=== PATIENT | male | born 1940 | race Caucasian/White ===

== ENCOUNTER 2019-08-01 12:33 | Emergency (ER) | payer BC, SELFPAY ==
[2019-08-01 13:10] VITALS: BP 144/87; PULSE 60; RESP 14; TEMP 36.1; O2SAT 92
--- NOTE | 2019-08-01 13:53 | DI.RAD.S_ITS ---
PROCEDURE: XR CHEST 1V INDICATIONS: chest pain TECHNIQUE: One view of the chest was acquired. COMPARISON: [facility], , CHEST 2 VIEW, 06/19/2016, 20:02. FINDINGS: Surgical changes and devices: None. Lungs and pleura: There are low lung volumes. Interstitial prominence at the right lung base is present. There is no large effusion or pneumothorax. Mediastinum: Mediastinal contours appear normal. Heart size is normal. Bones and chest wall: No suspicious bony lesions. Overlying soft tissues appear unremarkable. IMPRESSION: Mild right basilar interstitial prominence may represent atelectasis, asymmetric edema, or pneumonia. Please correlate clinically. Dictated by: Tk Cadet M.D. on 08/01/2019 at 13:42 Approved by: Tk Cadet M.D. on 08/01/2019 at 13:43
[2019-08-01 14:01] LABS: Add Manual Diff / Slide Review NO; Basophils Absolute Auto 0 /uL (0-100); Basophils Percent Auto 0.5 % (0-2); Eosinophils Absolute Auto 0 /uL (0-450); Eosinophils Percent Auto 0.6 % (2-4); Hematocrit 41.5 % (41-53); Hemoglobin 14.6 g/dL (13.5-17.5); Lymphocytes Absolute Auto 1300 /uL (1100-4500); Lymphocytes Percent Auto 16.1 % (25-40); Mean Corpuscular HGB Conc 35.2 % (30-36); Mean Corpuscular Hemoglobin 33.2 PG (26-34); Mean Corpuscular Volume 94.5 fL (80-100); Monocytes Absolute Auto 500 /uL (0-900); Monocytes Percent Auto 5.9 % (3-14); Neutrophils Absolute Auto 6000 /uL (1500-7000); Neutrophils Percent Auto 76.9 % (50-75); Platelet Count 267 X10^3/uL (150-400); White Blood Cell Count 7.9 X10^3/uL (4.5-11.0)
[2019-08-01 14:04] LABS: Alanine Aminotransferase 28 IU/L (<50); Albumin 4.1 g/dL (3.5-5.0); Albumin Globulin Ratio 1.2 (1.0-2.8); Alkaline Phosphatase 101 U/L (38-126); Aspartate Aminotransferase 32 IU/L (17-59); BUN Creatinine Ratio 23.3 (6-22); Bilirubin Total 0.4 mg/dL (0.2-1.3); Blood Urea Nitrogen 21 mg/dL (9-20); Calcium 9.2 mg/dL (8.4-10.2); Carbon Dioxide 28 mmol/L (22-32); Chloride 105 mmol/L (98-107); Creatine Kinase 84 U/L (55-170); Estimated Glomerular Filt Rate > 60.0 mL/min (>60); Globulin 3.3 g/dL (1.7-4.1); Glucose 118 mg/dL (80-110); HEMOLYSIS < 15 (0-50); Lipase 98 U/L (23-300); Potassium 4.2 mmol/L (3.4-5.1); Sodium 141 mmol/L (137-145); Total Protein 7.4 g/dL (6.3-8.2)
[2019-08-01 14:06] VITALS: BP 161/93; PULSE 72; RESP 16
[2019-08-01 14:09] VITALS: O2SAT 92
--- NOTE | 2019-08-01 14:11 | PC.NURSE ---
pt and spouse reports, this morning at 10am, pt +dizziness, ground level fall onto carpet, denies head injury, denies loc/neck/back pain. pt recovering from pneumonia for 3 weeks, spouse states, he used to have RX meclizine. denies any symptoms at this time, spouse requesting meclizine rx.
[2019-08-01 14:16] LABS: Troponin I < 0.012 ng/mL (0.01-0.034)
[2019-08-01 14:40] LABS: INR 1.1 (0.9-1.3); Prothrombin Time 12.7 SECONDS (10.1-12.7)
[2019-08-01 14:43] LABS: PTT Partial Thromboplastin Tim 28 SECONDS (26.4-36.2)
--- NOTE | 2019-08-01 20:30 | ED.DIZZY ---
HPI - Dizziness <Mary Ellen PondSUZANNEP-BC - Last Filed: 08/01/19 20:35> General Chief Complaint: Dizziness Stated Complaint: vertigo Time Seen by Provider: 08/01/19 14:29 Source: patient and family Mode of arrival: Ambulatory Limitations: no limitations History of Present Illness HPI Narrative: The patient is a 78-year-old male nonsmoker with history of influenza who presents with a chief complaint of an episode of dizziness earlier this morning approximately 10:00 a.m.. states he has a history of vertigo on and off. States that he got up felt the knee and fell over. Denies any his head, any loss of consciousness, any neck or back pain incontinence of bowel incontinence of bladder saddle anesthesia. He states that the spinning sensation self resolved and he feels fine now. On my initial exam the patient is requesting to go home. He denies any nausea vomiting diarrhea abdominal pain chest pain shortness of breath. Denies any weakness, slurred speech, confusion. Patient is declining any CTs at this point time. states that he has been seen for pneumonia recently, has been getting better and they do not want that evaluated today. Related Data Home Medications Medication Instructions Recorded Confirmed Glucosamine Hydrochloride 500 mg PO QDAY #0 04/05/11 (#GLUCOSAMINE) MULTIVITAMIN (#UNI-STRESS) 1 cap PO QDAY #0 04/05/11 [FISH OIL] 1,000 mg PO QDAY #0 04/05/11 [VITAMIN D3] 1,000 iu PO QDAY #0 04/05/11 lovastatin 40 mg PO QDAY #0 04/05/11 tamsulosin [Flomax] 0.4 mg PO QDAY #0 04/05/11 [EQUATE ALLERGY ] PO PRN #0 04/17/11 donepezil [Aricept] 25 mg PO #0 04/08/13 memantine [Namenda] #0 06/19/16 tadalafil [Cialis] #0 06/19/16 Previous Rx's Medication Instructions Recorded oseltamivir [Tamiflu] 75 mg PO BID #9 cap 06/19/16 meclizine [Motion Relief 25 mg PO TID PRN #14 tab 08/01/19 (meclizine)] Allergies Allergy/AdvReac Type Severity Reaction Status Date / Time SULFA (sulfonamide) Allergy Unknown Uncoded 10/16/17 12:18 Review of Systems [facility] Last Filed: 08/01/19 20:35> Review of Systems Narrative: GENERAL: Denies chills, fatigue, malaise, fever, sweats. HEENT: Denies sinus pain, ear pain, sore throat, difficulty swallowing, dizziness. RESPIRATORY: Denies dyspnea, cough, wheezing, hemoptysis, sputum. CARDIOVASCULAR: Denies chest pain, palpitations, orthopnea, edema, GASTROINTESTINAL: Denies nausea, vomiting, abdominal pain, diarrhea, constipation, melena. : Denies dysuria, frequency, incontinence, hematuria, urinary retention. MUSCULOSKELETAL: denies weakness, joint pain, or bony pain SKIN: Denies rash, skin lesions, or other NEUROLOGIC: See HPI PSYCHIATRIC: No concerning psychosocial issues. 12 point review of systems is negative except for those stated above Patient History <[facility] - Last Filed: 08/01/19 20:35> Social History Smoking Status: Never smoker Smoking Status: Never smoker Substance Use Type: does not use Exam <Mary Ellen Pond [facility] - Last Filed: 08/01/19 20:35> Narrative Exam Narrative: GENERAL: This is a well-nourished, well-developed patient, in no acute distress HEAD: Atraumatic. Normocephalic. No temporal or scalp tenderness. EYES: Pupils equal round and reactive. Extraocular motions intact. No scleral icterus. No injection or drainage. ENT: Nose without bleeding, purulent drainage or septal hematoma. Throat without erythema, tonsillar hypertrophy or exudate. Uvula midline. Airway patent. NECK: Trachea midline. No JVD or lymphadenopathy. Supple, nontender, no meningeal signs. CARDIOVASCULAR: Regular rate and rhythm RESPIRATORY: Clear to auscultation. Breath sounds equal bilaterally. No wheezes, rales, or rhonchi. No cough. No increased respiratory effort. No accessory muscle use. GASTROINTESTINAL: Abdomen soft, non-tender, nondistended. No hepato-splenomegaly, or palpable masses. No guarding. EXTREMITIES: No clubbing, cyanosis, or edema. No joint tenderness, effusion, or edema noted. BACK: Nontender without deformity or crepitance. No flank tenderness. NEURO: AOx3. Interactive. Age appropriate. Stable gait. Strength is equal upper lower extremities bilaterally. Clear speech. No gross cranial nerve deficit. SKIN: No rash or erythema on visible skin Initial Vital Signs Initial Vital Signs: Vital Signs Temperature 97 F L 08/01/19 13:10 Pulse Rate 60 08/01/19 13:10 Respiratory Rate 14 08/01/19 13:10 Blood Pressure 144/87 H 08/01/19 13:10 Pulse Oximetry 92 08/01/19 13:10 <DO Valorie Boyle Last Filed: 08/02/19 07:59> Initial Vital Signs Initial Vital Signs: Vital Signs Temperature 97 F L 08/01/19 13:10 Pulse Rate 60 08/01/19 13:10 Respiratory Rate 14 08/01/19 13:10 Blood Pressure 144/87 H 08/01/19 13:10 Pulse Oximetry 92 08/01/19 13:10 Course <GUALBERTO Vines - Last Filed: 08/01/19 20:35> Orders Ordered: Discontinued Medications Meclizine HCl (Antivert) 25 mg PO NOW ONE Stop: 08/01/19 14:49 Last Admin: 08/01/19 15:35 Dose: Not Given Documented by: MEISENJosiah Vital Signs Vital signs: Vital Signs - 8 hr 08/01/19 13:10 08/01/19 14:06 08/01/19 14:09 Temperature 97 F L Pulse Rate 60 72 Respiratory Rate 14 16 Blood Pressure 144/87 H Blood Pressure [Left Arm] 161/93 H Pulse Oximetry 92 92 <Kristina Tom DO - Last Filed: 08/02/19 07:59> Orders Ordered: Discontinued Medications Meclizine HCl (Antivert) 25 mg PO NOW ONE Stop: 08/01/19 14:49 Last Admin: 08/01/19 15:35 Dose: Not Given Documented by: MEISENB Vital Signs Vital signs: Vital Signs - 8 hr 08/01/19 13:10 08/01/19 14:06 08/01/19 14:09 Temperature 97 F L Pulse Rate 60 72 Respiratory Rate 14 16 Blood Pressure 144/87 H Blood Pressure [Left Arm] 161/93 H Pulse Oximetry 92 92 MDM - Dizziness <GUALBERTO Vines Last Filed: 08/01/19 20:35> Differential Diagnosis Differential diagnosis: Likely benign paroxysmal positional vertigo, orthostatic hypotension, vertebral basilar insufficiency and cerebrovascular accident Lab Data Result diagrams: 08/01/19 13:30 08/01/19 13:30 Labs: Lab Results 08/01/19 08/01/19 08/01/19 Range/Units 13:30 13:30 13:30 WBC 7.9 (4.5-11.0) X10^3/uL RBC 4.40 L (4.5-5.9) X10^6/uL Hgb 14.6 (13.5-17.5) g/dL Hct 41.5 (41-53) % MCV 94.5 (80-100) fL MCH 33.2 (26-34) PG MCHC 35.2 (30-36) % RDW 13.0 (11.6-14.8) % Plt Count 267 (150-400) X10^3/uL Neut % (Auto) 76.9 H (50-75) % Lymph % (Auto) 16.1 L (25-40) % [place] % (Auto) 5.9 (3-14) % Eos % (Auto) 0.6 L (2-4) % Baso % (Auto) 0.5 (0-2) % Neut # (Auto) 6000 (0779-3248) /uL Lymph # (Auto) 1300 (0980-1084) /uL [place] # (Auto) 500 (0-900) /uL Eos # (Auto) 0 (0-450) /uL Baso # (Auto) 0 (0-100) /uL PT Cancelled INR Cancelled APTT Cancelled Sodium 141 (137-145) mmol/L Potassium 4.2 (3.4-5.1) mmol/L Chloride 105 (98-107) mmol/L Carbon Dioxide 28 (22-32) mmol/L BUN 21 H (9-20) mg/dL Creatinine 0.90 (0.66-1.25) mg/dL Estimated GFR > 60.0 (>60) mL/min BUN/Creatinine Ratio 23.3 H (6-22) Glucose 118 H (80-110) mg/dL Calcium 9.2 (8.4-10.2) mg/dL Total Bilirubin 0.4 (0.2-1.3) mg/dL AST 32 (17-59) IU/L ALT 28 (<50) IU/L Alkaline Phosphatase 101 (38-126) U/L Total Creatine Kinase 84 (55-170) U/L CK-MB (CK-2) TNP CK-MB (CK-2) Rel Index TNP Troponin I < 0.012 (0.01-0.034) ng/mL Total Protein 7.4 (6.3-8.2) g/dL Albumin 4.1 (3.5-5.0) g/dL Globulin 3.3 (1.7-4.1) g/dL Albumin/Globulin Ratio 1.2 (1.0-2.8) Lipase 98 (23-300) U/L 08/01/19 Range/Units 14:17 WBC (4.5-11.0) X10^3/uL RBC (4.5-5.9) X10^6/uL Hgb (13.5-17.5) g/dL Hct (41-53) % MCV (80-100) fL MCH (26-34) PG MCHC (30-36) % RDW (11.6-14.8) % Plt Count (150-400) X10^3/uL Neut % (Auto) (50-75) % Lymph % (Auto) (25-40) % [place] % (Auto) (3-14) % Eos % (Auto) (2-4) % Baso % (Auto) (0-2) % Neut # (Auto) (8440-2867) /uL Lymph # (Auto) (0412-5696) /uL [place] # (Auto) (0-900) /uL Eos # (Auto) (0-450) /uL Baso # (Auto) (0-100) /uL PT 12.7 INR 1.1 APTT 28 Sodium (137-145) mmol/L Potassium (3.4-5.1) mmol/L Chloride (98-107) mmol/L Carbon Dioxide (22-32) mmol/L BUN (9-20) mg/dL Creatinine (0.66-1.25) mg/dL Estimated GFR (>60) mL/min BUN/Creatinine Ratio (6-22) Glucose (80-110) mg/dL Calcium (8.4-10.2) mg/dL Total Bilirubin (0.2-1.3) mg/dL AST (17-59) IU/L ALT (<50) IU/L Alkaline Phosphatase (38-126) U/L Total Creatine Kinase (55-170) U/L CK-MB (CK-2) CK-MB (CK-2) Rel Index Troponin I (0.01-0.034) ng/mL Total Protein (6.3-8.2) g/dL Albumin (3.5-5.0) g/dL Globulin (1.7-4.1) g/dL Albumin/Globulin Ratio (1.0-2.8) Lipase (23-300) U/L Urine Dip Bedside Urine Glucose Negative Bedside Urine Bilirubin - Negative Bedside Urine Ketone +/- 5 Urine Specific [place] 1.020 Bedside Urine Occult Blood - Negative Bedside Urine pH 7.0 Bedside Urine Protein +/- 15 Bedside Urine Urobilinogen - Negative Bedside Urine Nitrite - Negative Bedside Urine Leukocytes - Negative Esterase Imaging Data Chest x-ray: Radiologist's Impression: [address] [place] [id number] XRay Report Signed Patient: James Amado Jr#: [id number] : 1Acct:[id number] Age/Sex: 78 / MDate of Service: 08/01/19 Loc: ED Accession Number: [id number] Procedure: XR chest 1V Ordering Provider: Kristina Tom D.O. PROCEDURE: XR CHEST 1V INDICATIONS: chest pain TECHNIQUE: One view of the chest was acquired. COMPARISON: [facility], CHEST 2 VIEW, 06/19/2016, 20:02. FINDINGS: Surgical changes and devices: None. Lungs and pleura: There are low lung volumes. Interstitial prominence at the right lung base is present. There is no large effusion or pneumothorax. Mediastinum: Mediastinal contours appear normal. Heart size is normal. Bones and chest wall: No suspicious bony lesions. Overlying soft tissues appear unremarkable. IMPRESSION: Mild right basilar interstitial prominence may represent atelectasis, asymmetric edema, or pneumonia. Please correlate clinically. Dictated by: Tk Cadet M.D. on 08/01/2019 at 13:42 Approved by: kT Cadet M.D. on 08/01/2019 at 13:43 ECG Data Attestation: I personally reviewed and interpreted this ECG as follows: Interpretation: Sinus rhythm. Ventricular rate 73. No ectopy noted. P.r. interval 191. QRS [address] candelario SUMNER Narrative Medical decision making narrative: The patient is a 78-year-old male presenting with a chief complaint of an episode of dizziness earlier today. He and his declined any CTs at this point time, request a prescription of meclizine and to go home. The patient is without a visual deficit, neurologic complaint or any complaint in the emergency department. He is able ambulate well with his walker and a steady gait. EKG is without any acute findings, troponin is negative, patient is hemodynamically stable requesting to go home. Patient has no questions or concerns upon discharge and states understanding of return precautions as well as follow-up care. <Kristina Tom, DO - Last Filed: 08/02/19 07:59> Lab Data Labs: Lab Results 08/01/19 08/01/19 08/01/19 Range/Units 13:30 13:30 13:30 WBC 7.9 (4.5-11.0) X10^3/uL RBC 4.40 L (4.5-5.9) X10^6/uL Hgb 14.6 (13.5-17.5) g/dL Hct 41.5 (41-53) % MCV 94.5 (80-100) fL MCH 33.2 (26-34) PG MCHC 35.2 (30-36) % RDW 13.0 (11.6-14.8) % Plt Count 267 (150-400) X10^3/uL Neut % (Auto) 76.9 H (50-75) % Lymph % (Auto) 16.1 L (25-40) % [place] % (Auto) 5.9 (3-14) % Eos % (Auto) 0.6 L (2-4) % Baso % (Auto) 0.5 (0-2) % Neut # (Auto) 6000 (6923-4378) /uL Lymph # (Auto) 1300 (3135-3628) /uL [place] # (Auto) 500 (0-900) /uL Eos # (Auto) 0 (0-450) /uL Baso # (Auto) 0 (0-100) /uL PT Cancelled INR Cancelled APTT Cancelled Sodium 141 (137-145) mmol/L Potassium 4.2 (3.4-5.1) mmol/L Chloride 105 (98-107) mmol/L Carbon Dioxide 28 (22-32) mmol/L BUN 21 H (9-20) mg/dL Creatinine 0.90 (0.66-1.25) mg/dL Estimated GFR > 60.0 (>60) mL/min BUN/Creatinine Ratio 23.3 H (6-22) Glucose 118 H (80-110) mg/dL Calcium 9.2 (8.4-10.2) mg/dL Total Bilirubin 0.4 (0.2-1.3) mg/dL AST 32 (17-59) IU/L ALT 28 (<50) IU/L Alkaline Phosphatase 101 (38-126) U/L Total Creatine Kinase 84 (55-170) U/L CK-MB (CK-2) TNP CK-MB (CK-2) Rel Index TNP Troponin I < 0.012 (0.01-0.034) ng/mL Total Protein 7.4 (6.3-8.2) g/dL Albumin 4.1 (3.5-5.0) g/dL Globulin 3.3 (1.7-4.1) g/dL Albumin/Globulin Ratio 1.2 (1.0-2.8) Lipase 98 (23-300) U/L 01/25/20 Range/Units 14:17 WBC (4.5-11.0) X10^3/uL RBC (4.5-5.9) X10^6/uL Hgb (13.5-17.5) g/dL Hct (41-53) % MCV (80-100) fL MCH (26-34) PG MCHC (30-36) % RDW (11.6-14.8) % Plt Count (150-400) X10^3/uL Neut % (Auto) (50-75) % Lymph % (Auto) (25-40) % [place] % (Auto) (3-14) % Eos % (Auto) (2-4) % Baso % (Auto) (0-2) % Neut # (Auto) (1638-4310) /uL Lymph # (Auto) (5244-0219) /uL [place] # (Auto) (0-900) /uL Eos # (Auto) (0-450) /uL Baso # (Auto) (0-100) /uL PT 12.7 INR 1.1 APTT 28 Sodium (137-145) mmol/L Potassium (3.4-5.1) mmol/L Chloride (98-107) mmol/L Carbon Dioxide (22-32) mmol/L BUN (9-20) mg/dL Creatinine (0.66-1.25) mg/dL Estimated GFR (>60) mL/min BUN/Creatinine Ratio (6-22) Glucose (80-110) mg/dL Calcium (8.4-10.2) mg/dL Total Bilirubin (0.2-1.3) mg/dL AST (17-59) IU/L ALT (<50) IU/L Alkaline Phosphatase (38-126) U/L Total Creatine Kinase (55-170) U/L CK-MB (CK-2) CK-MB (CK-2) Rel Index Troponin I (0.01-0.034) ng/mL Total Protein (6.3-8.2) g/dL Albumin (3.5-5.0) g/dL Globulin (1.7-4.1) g/dL Albumin/Globulin Ratio (1.0-2.8) Lipase (23-300) U/L Urine Dip Bedside Urine Glucose Negative Bedside Urine Bilirubin - Negative Bedside Urine Ketone +/- 5 Urine Specific [place] 1.020 Bedside Urine Occult Blood - Negative Bedside Urine pH 7.0 Bedside Urine Protein +/- 15 Bedside Urine Urobilinogen - Negative Bedside Urine Nitrite - Negative Bedside Urine Leukocytes - Negative Esterase Discharge Plan Departure Patient Disposition: Home Clinical Impression: Dizziness Discharge Date/Time: 08/01/19 15:49 Instructions: DI for Vertigo, DI for Dizziness-Nonvertigo Activity Restrictions/Additional Instructions: Happy anniversary!!! I am sorry that you spent at in the emergency department I sent a prescription of meclizine to [facility] in [place] Please follow-up with primary care provider in the next few days Please come back to emergency department for any acute concerns such as concern of heart attack, stroke etcetera Prescriptions: New meclizine [Motion Relief (meclizine)] 25 mg tablet 25 mg PO TID PRN (Reason: dizziness) Qty: 14 RF: 0 No Action tamsulosin [Flomax] 0.4 MG capsule,extended release 24hr 0.4 mg PO QDAY Qty: 0 RF: 0 lovastatin 40 MG tablet 40 mg PO QDAY Qty: 0 RF: 0 MULTIVITAMIN (#UNI-STRESS) 1 cap PO QDAY Qty: 0 RF: 0 [FISH OIL] 1,000 mg PO QDAY Qty: 0 RF: 0 Glucosamine Hydrochloride (#GLUCOSAMINE) 500 mg PO QDAY Qty: 0 RF: 0 [VITAMIN D3] 1,000 iu PO QDAY Qty: 0 RF: 0 [EQUATE ALLERGY ] PO PRN Qty: 0 RF: 0 donepezil [Aricept] 10 MG tablet 25 mg PO Qty: 0 RF: 0 memantine [Namenda] 5 MG tablet Qty: 0 RF: 0 tadalafil [Cialis] 2.5 MG tablet Qty: 0 RF: 0 oseltamivir [Tamiflu] 75 MG capsule 75 mg PO BID Qty: 9 RF: 0 Referrals: Tomeka Cifuentes DO [Primary Care Provider] -
== END 2019-08-01 15:49 | disposition home or self-care (01) ==
PROVIDERS: Emergency Medicine; Emergency Provider Nurse Practitioner Family; PCP Family Medicine
DX: R42 Dizziness and giddiness (principal); R07.9 Chest pain, unspecified
CPT/HCPCS: 36415; 71045; 80053; 81003; 82550; 83690; 84484; 85025; 85610; 85730; 93005; 99284; 99285